=== PATIENT | male | born 1965 | race Caucasian/White ===

== ENCOUNTER 2018-11-20 14:48 | Emergency (ER) | payer MEDICAID ==
[~2018-11-20] VITALS: Ht 170.2 cm; Wt 95.3 kg
[2018-11-20 14:58] VITALS: BP 128/71
--- NOTE | 2018-11-20 15:54 | NUR ---
PT W/C ASSISTED TO BED 4.
--- NOTE | 2018-11-20 16:00 | NUR ---
Pt is 53M came to er c/o right knee swelling x months and acute onset SOB x today. 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 Has "small hole" on right knee. No fever. Minimal to no distress noted at this time. Deenis any distress at this time. Has swelling on the rt amputated knee. Slight discomfort but denies any pain while touching at the site. has small skin breakdown , bandage on . Pt seen by er md. to get the x-ray. will continue to monitor pt. Hx- DM Rx-
[2018-11-20] MEDS ORDERED: KETOROLAC 30 MG/ML VIAL IM ONE (16:20)
[2018-11-20] MEDS ORDERED: IBUPROFEN 800 MG TAB PO ONE (16:45)
[2018-11-20 17:00] LABS: BASOPHILS % (AUTO) 0.5 % (0.0-2.0); EOSINOPHILS # (AUTO) 0.5 K/uL (0-0.4); EOSINOPHILS % (AUTO) 5.8 % (0.0-4.0); HEMATOCRIT 41.4 % (36-52); HEMOGLOBIN 13.7 g/dL (12.0-18.0); LYMPHOCYTES # (AUTO) 1.5 K/uL (2.0-11.5); LYMPHOCYTES % (AUTO) 17.8 % (20.5-51.1); MEAN CORPUSCULAR HEMOGLOBIN 29 pg (27-31); MEAN CORPUSCULAR HGB CONC 33 g/dL (33-37); MEAN CORPUSCULAR VOLUME 88.6 fL (80-94); MONOCYTES # (AUTO) 0.6 K/uL (0.8-1.0); MONOCYTES % (AUTO) 6.9 % (1.7-9.3); NEUTROPHILS # (AUTO) 5.7 K/uL (1.8-7.7); PLATELET COUNT (AUTO) 193 K/uL (140-450); RED BLOOD CELL COUNT(AUTO) 4.67 MIL/uL (4.20-6.10); RED CELL DISTRIBUTION WIDTH 14.3 % (11.6-13.7); WHITE BLOOD COUNT (AUTO) 8.3 K/uL (4.8-10.8)
[2018-11-20 17:24] LABS: CARBON DIOXIDE 29.9 mmol/L (21-32); CREATININE 1.2 mg/dL (0.7-1.3); POTASSIUM 4.9 mmol/L (3.5-5.1)
[2018-11-20 18:06] VITALS: BP 130/76
== END 2018-11-20 18:08 | disposition home or self-care (01) ==
LOC: MED 14:48
DX: G89.29 Other chronic pain (principal); M25.511 Pain in right shoulder; M25.561 Pain in right knee; R19.7 Diarrhea, unspecified; I10 Essential (primary) hypertension; E11.40 Type 2 diabetes mellitus with diabetic neuropathy, unspecified; Z89.511 Acquired absence of right leg below knee
CPT/HCPCS: 36415; 71045; 80048; 82948; 85025; 99284; Q0092; J1885